=== PATIENT | male | born 2005 | race Caucasian/White ===

== ENCOUNTER 2025-03-17 11:23 | Emergency (ER) | payer OTHER, SELFPAY ==
[2025-03-17 11:23] VITALS: BP 144/90; PULSE 97; RESP 18; TEMP 36.6; O2SAT 99; BMI 28.0
[2025-03-17] MEDS: Lidocaine 1% (20 ml mdv) 20 ML Vial INFILT (11:42)
--- NOTE | 2025-03-17 11:43 | EX.ED.DYSGE1 ---
HPI History of Present Illness Chief Complaint: Abscess Detail of Chief Complaint: Tender swollen area with spontaneous drainage near the base of the penis Informant: patient Onset/Context/Timing Onset: Days Context: Sudden Onset Timing: Continuous and Waxes and wanes Quality: Swelling, tenderness and intermittent drainage x 3 Location: Near the base of the penis Current Severity: Mild Maximum Severity: Mild Worsened by: Possibly using clippers Relieved by: Nothing Associated Symptoms Associated Symptoms: Chills last evening. Narrative Narrative: Patient is a 20-year-old male. He presents because of painful raised area near the base of his penis. There is a small abscess. This probably was folliculitis initially. He also has other areas that are inflamed secondary to folliculitis. He denies any urologic symptoms. He denies scrotal pain or swelling. He denies any other symptoms. He is presently on no medication. He has allergy to Vermox. He is not on any immunosuppressive meds. When asked if he has any medical problems he states he has asthma. He is on medicine/inhalers for his asthma. This is contrary to what he initially told me. Prior similar symptoms: Yes Recent Illness/Hospitalization: No PFSH PFSH Allergy/AdvReac Type Severity Reaction Status Date / Time mebendazole (From Vermox) Allergy Anaphylaxis Verified 03/17/25 11:25 Social History (Updated 03/17/25 @ 11:[address] Tommy Christianson MD) household members: significant other Smoking Status: Never smoker ROS ROS ED Constitutional Constitutional ED: Reports chills and sweats; Denies fever(s), subjective or weight loss Eyes Eyes: Denies blurry vision or change in vision ENT ENT ED: Denies ear pain, rhinorrhea or sore throat Cardiovascular Cardiovascular: Denies chest pain or palpitations Respiratory/Chest Respiratory/Chest: Denies cough, dyspnea or dyspnea on exertion Gastrointestinal Gastrointestinal: Denies abdominal pain, nausea or vomiting Genitourinary Genitourinary ED: Denies dysuria, hematuria or urinary frequency Musculoskeletal Musculoskeletal: Denies arthralgias or myalgias Integumentary Reports abscess and rash Neurologic Neurologic: Denies headache(s) or paresthesias Endocrine Endocrinology: Denies cold intolerance or heat intolerance Hematologic/Lymphatic Hematologic/Lymphatic: Reports systems reviewed and no addt'l complaints, except as documented EXAM Physical Exam Const Vital Signs: 03/17/25 11:23 Temperature 97.9 F Temperature Source Oral Pulse Rate 97 Respiratory Rate 18 Blood Pressure 144/90 H Blood Pressure Mean 108 Pulse Ox 99 Oxygen Delivery Method Room Air Positive well nourished and well developed General Appearance ED: well developed and NAD HEENT Reports moist mucous membranes HEENT Narrative: Head is atraumatic and normocephalic. Ears normal. Eyes PERRL and EOMs intact bilaterally General Eye ED: Negative for pale conjunctiva or scleral icterus Neck no lymphadenopathy, supple and no JVD Resp normal respiratory effort and clear to auscultation bilaterally Cardio regular rate, regular rhythm, S1 normal heart sound, S2 normal heart sound and no murmurs GI normal to inspection, nondistended, normoactive bowel sounds, non-tender, non-distended and no masses; Negative for hepatosplenomegaly Narrative: Patient has no penile lesions or discharge. He is circumcised. He does have evidence of folliculitis due to using clippers. There is 1 area that has drained 3 times spontaneously. This is tender and slightly fluctuant. Testes are descended bilaterally. There is no inguinal adenopathy. There is no scrotal swelling or evidence of cellulitis. Extremity normal to inspection Neuro oriented x3 and CN's II-XII intact bilaterally Sensorium / Orientation: alert Psych mental status grossly normal Psych Narrative: Patient informed that he may become violent when I anesthetized him and drain the abscess. Skin No no rashes or lesions noted, No no wounds and skin turgor normal Skin Narrative: Folliculitis and small abscess as previously described Procedures Other Procedures Procedure(s): Incision and drainage abscess scrotum Patient was prepped draped sterile manner. Area was anesthetized warm side lidocaine without epinephrine by local infiltration. A 4 mm incision was made using a 15 blade. There were small/scant amount of purulent drainage. This was a superficial abscess. No further treatment is needed. Discharge Plan Triage Chief Complaint: Abscess ED Provider: Tommy Christianson Dx/Rx/DC Orders Clinical Impression: Abscess of scrotal wall, Folliculitis, Elevated blood-pressure reading without diagnosis of hypertension Instructions: ED Abscess Incision And Drainage, ED Folliculitis, ED Hypertension, To Be Confirmed Stand Alone Forms: ED Work / School Excuse Primary Care Provider: Care Physician,No Primary Referrals: NOT,DEFINED [Non-Staff, None] Melissa Cavazos MD [[facility]] - 1-2 Weeks Activity Restrictions/Additional Instructions: 1. Recommend not shaving or using clippers in your genital region. 2. Warm compresses to areas of redness, folliculitis 3. Your blood pressure is elevated for a 20-year-old. Recommend follow-up with Dr. Melissa Cavazos in 1 to 2 weeks to have this rechecked. If you have a primary care physician follow-up with your primary care physician. Print Language: Green[place]ic Disposition Disposition: Home, Self Care
[2025-03-17 12:29] VITALS: BP 122/74; PULSE 68; RESP 16; TEMP 36.4; O2SAT 100
== END 2025-03-17 12:29 | disposition home or self-care (01) ==
PROVIDERS: Emergency Provider Emergency Medicine; Visit Provider Emergency Medicine
DX: N49.2 Inflammatory disorders of scrotum (principal); L73.8 Other specified follicular disorders; R03.0 Elevated blood-pressure reading, without diagnosis of hypertension
CPT/HCPCS: 55100; 10060; 99282